=== PATIENT | male | born 1965 | race Caucasian/White ===

== ENCOUNTER → 2017-06-07 07:58 | Outpatient (CLI) | payer OTHER | END | disposition home or self-care (01) | LOC: D.SLEEP 07:58 | DX: G47.33 Obstructive sleep apnea (adult) (pediatric) (principal) ==

== ENCOUNTER 2020-10-01 11:01 | Day surgery (SDC) | payer OTHER ==
[~2020-10-01] VITALS: Ht 167.6 cm; Wt 132.9 kg
[2020-10-01 14:24] LABS: BASOPHILS 0.3 % (0-2); EOSINOPHILS 1.8 % (0-7); HEMATOCRIT 44.3 % (42.0-54.0); HEMOGLOBIN 14.5 g/dL (13.5-17.5); IMMATURE GRANULOCYTES 4.2 % (0-5); LYMPHOCYTE ABS# 1.16 10x3/uL (1.32-3.57); LYMPHOCYTES 17.5 % (15-50); MCH 28.5 pg (26.0-34.0); MCHC 32.7 g/dL (31.0-37.0); MEAN PLATELET VOLUME 9.7 fL (7.4-10.4); MONOCYTES 12.5 % (2-11); NEUTROPHIL ABS# 4.23 10x3/uL (1.78-5.38); NEUTROPHILS 63.7 % (40-80); PLATELET COUNT 214 10x3/uL (130-400); RBC 5.09 10x6/uL (4.20-6.10); RDW 13.6 % (11.5-14.5); WBC 6.6 10x3/uL (4.8-10.8)
[2020-10-01] MEDS ORDERED: ROCEPHIN 1 GM/D51 G1 IV (14:24)
[2020-10-01] MEDS ORDERED: APAP325 MG PO (14:24)
[2020-10-01] MEDS ORDERED: NOVOLIN 70/30 110 ML SC ×2 (14:25→14:26)
[2020-10-01] MEDS ORDERED: PRAVACHOL20 MG PO (14:25)
[2020-10-01] MEDS ORDERED: LISINOPRIL40 MG PO (14:27)
[2020-10-01] MEDS ORDERED: OMEPRAZOLE20 M1 PO (14:27)
[2020-10-01] MEDS ORDERED: FUROSEMIDE40 MG PO (14:27)
[2020-10-01] MEDS ORDERED: DILTIAZEM PO (14:27)
[2020-10-01] MEDS ORDERED: ABSORBASE TOPICAL (14:28)
[2020-10-01] MEDS ORDERED: METFORMIN HCL500 M1 PO (14:29)
[2020-10-01] MEDS ORDERED: CLONIDINE HCL0.1 MG PO (14:29)
[2020-10-01] MEDS ORDERED: K-DUR20 MEQ PO (14:29)
[2020-10-01 14:42] LABS: CALC OSMOLALITY 278 mosm/kg (275-300); CALCIUM 8.7 mg/dL (8.5-10.1); CARBON DIOXIDE 28.4 mmol/L (21.0-32.0); CHLORIDE - SERUM 101 mmol/L (98-107); CREATININE - SERUM 0.9 mg/dL (0.6-1.3); GLUCOSE 108 mg/dL (74-106); POTASSIUM - SERUM 3.9 mmol/L (3.5-5.1); SODIUM 140 mmol/L (136-145); UREA NITROGEN 11 mg/dL (7-18); eGFR NON AFRICAN AMERICAN > 90 mL/min (90-120)
[2020-10-01 14:57] VITALS: BP 172/95; Ht 167.6 cm; Wt 132.9 kg
--- NOTE | 2020-10-01 19:32 | NUR ---
1919 MEDICATED FOR PAIN. IV RIGHT HAND FLUSHED WITH NS. INSTRUCTIONS AND RX GIVEN TO JUAN JOSÉ
--- NOTE | 2020-10-03 09:12 | HP ---
PATIENT: JULIANNE KIRKLAND MEDICAL RECORD: [id number] ACCOUNT: [id number] [facility] 65 ADMISSION DATE: 10/01/20 PCP: ANEL DOE MD HISTORY AND PHYSICAL EXAMINATION CHIEF COMPLAINT: Left groin mass. HISTORY OF PRESENT ILLNESS: The patient has a large left groin mass. I saw the patient out at the [facility]. The mass became larger, erythematous, and painful. He is here for excision. It is somewhat mobile. It is 24 cm x 16 cm. PAST MEDICAL AND SURGICAL HISTORY: Hypertension, insulin-dependent diabetes mellitus, and gastroesophageal reflux. MEDICATIONS AT THE [facility]: Please see the nursing list. ALLERGIES: PEANUT BUTTER. PHYSICAL EXAMINATION: GENERAL: The patient does not appear acutely ill. He does appear chronically ill. VITAL SIGNS: Reviewed. EARS: External ears appear normal. EYES: Extraocular movements are intact. NECK: Trachea midline. CHEST: No intercostal retractions. PULMONARY: Nonlabored. No stridor. IMPRESSION: Left groin mass, rule out malignant neoplasm. PLAN: The patient will be wide excision with closure. The risks, possible complications, and alternatives of the procedure were explained to the patient. He elects to proceed. TRANSINT:[id number] Voice Confirmation ID: [id number] DOCUMENT ID: [id number] cc: Dr. Jason DE LA O, MARIAM NICHOLS at 0912 CC: [id number] DICTATION DATE: 10/01/20 1648 UNIX DEVELOPER: 10/01/20 2206 [facility] 10/01/20 [place] [id number] [place] [id number]
--- NOTE | 2020-10-04 16:10 | OP ---
PATIENT NAME: JULIANNE KIRKLAND MEDICAL RECORD: [id number] :65 LOCATION:D.OPS ADMISSION DATE: SURGEON: MARIAM DE LA O MD DATE OF OPERATION: 10/01/2020 PREOPERATIVE DIAGNOSIS: Large left upper thigh mass. POSTOPERATIVE DIAGNOSIS: Large left upper thigh mass. Please see dimensions below. 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 PROCEDURE: Wide excision of a left upper thigh mass. This was an anterior medial mass. It was 28.5 cm, in the lateral dimension and 19 cm in the cephalad caudad dimension. The excised defect was 29.5 cm in the mediolateral dimension and 20.2 cm in the cephalad caudad dimension. The excision included skin and subcutaneous tissue as well as the mass, which appeared to be a lipomatous and lymphatic tissue likely is included as the mass was very edematous. Additionally, several lymph nodes were excised as well. DESCRIPTION OF PROCEDURE: The patient was conveyed to the operating room electively on 10/01/2020. General anesthesia was induced by the anesthesia staff. With the use of double curvilinear incisions, the skin and subcutaneous tissue was incised around the mass. I then began to undermine the mass sharply. The mass was excised. Measurements were obtained. Some lymph miguel tissue was identified and this was excised sharply. Meticulous hemostasis was achieved with electrocautery. At no time was there any apparent nerve or vascular injury. Some small arterial sqirters were ligated with [id number] 3-0 Vicryl. This was an intermediate closure. The patient was initially frog legged and we had to unfrog leg him in order to close the incision. The subdermis was approximated with interrupted 2-0 Vicryl. The skin was approximated with multiple interrupted 2-0 nylons in a vertical mattress fashion and then I sealed the entire incision as I anticipate that it will become moist in this area and the sealant was Dermabond. A sterile dressing was applied. The patient was then extubated and conveyed to post-anesthesia care unit where he was in stable condition. He can be dismissed back to the skilled nursing on tramadol. There is no need for him to follow up with me in the office unless he develops complications related to this operative procedure. I can see him at the skilled nursing in 2 weeks for suture removal on one of my GI clinic days. TRANSINT:[id number] Voice Confirmation ID: [id number] DOCUMENT ID: [id number] MARIAM DE LA O MD at 1610 CC: DEV BROWN [id number] DICTATION DATE: 10/03/20 1002 PERSONAL LINES ACCOUNT EXECUTIVE: 10/03/20 1122 [facility] 10/01/20 [place] [id number] [place] [id number]
== END 2020-10-01 20:00 ==
LOC: D.OPS 11:01
PROVIDERS: Anesthesiology; ATTEND Surgery
DX: M79.652 Pain in left thigh (principal); R22.42 Localized swelling, mass and lump, left lower limb; I10 Essential (primary) hypertension; E11.9 Type 2 diabetes mellitus without complications; Z79.4 Long term (current) use of insulin; K21.9 Gastro-esophageal reflux disease without esophagitis